=== PATIENT | female | born 1945 | race Caucasian/White ===

== ENCOUNTER 2016-09-25 23:15 | Emergency (ER) | payer MEDICARE, OTHER ==
[~2016-09-25 23:15] MED LIST: ASABAYER PO; ATEN25 PO; CENTRUM TAB1 TAB PO; CLARIT10 PO; COZAAR100 MG PO; CYANO1000T PO; FISH-EPA1000 MG PO; IRON325 MG PO; LANTUS SC; LIPITOR40 PO; LOFIB160 PO; METHOC500B PO; MIRALAXPKT PO; NEUR300 PO; NORV5 PO; NOVOLOG SC; OS500+D PO; PERCOCET1 TA2 PO; PRILO PO; VITC500 PO; ZINC PO
[2016-09-26 00:31] LABS: BASOPHILS 0.8 %; BASOPHILS ABSOLUTE 0.07 10/3/uL (0.0-0.16); EOSINOPHILS 2.5 %; EOSINOPHILS ABSOLUTE 0.23 10/3/uL (0.0-0.53); HEMATOCRIT 38.8 % (36.0-48.0); HEMOGLOBIN 12.9 g/dL (12.0-16.0); IMMATURE GRANULOCYTES 0.9 %; IMMATURE GRANULOCYTES ABSOLUTE 0.08 10/3/uL (0.0-0.11); LYMPHOCYTES 24.4 %; LYMPHOCYTES ABSOLUTE 2.27 10/3/uL (0.67-4.30); MEAN CORPUSCULAR HEMOGLOB 30.6 pg (26.0-34.0); MEAN CORPUSCULAR VOLUME 91.9 fL (80-100); MEAN PLATELET VOLUME 10.6 fL (9.2-13.0); MONOCYTES 13.2 %; MONOCYTES ABSOLUTE 1.23 10/3/uL (0.21-1.20); NEUTROPHILS 58.2 %; NEUTROPHILS ABSOLUTE 5.41 10/3/uL (2.02-8.40); PLATELET COUNT 293 10/3/uL (150-400); RBC DISTRIBUTION WIDTH 13.1 % (12.0-16.0); RED CELL COUNT 4.22 10/6/uL (4.0-5.6); WHITE BLOOD CELLS 9.3 10/3/uL (4.5-10.5)
[2016-09-26 00:32] LABS: MANUAL DIFF NO %; MEAN CORPUS HGB CONC 33.2 g/dL (32.0-36.0)
[2016-09-26 00:40] LABS: INTERNATIONAL NORMAL RATI 1.2 UNITS (-); PARTIAL THROMBO TIME 38.6 SEC (22.5-37.2)
[2016-09-26 00:49] LABS: CALCIUM, SERUM 8.8 MG/DL (8.5-10.4); CHEST PAIN PROFILE TAT 0 Hrs 22 Mins; CHLORIDE, SERUM 105 MMOL/L (96-112); CO2 (CARBON DIOXIDE) 29 MMOL/L (24-34); POTASSIUM, SERUM 4.5 MMOL/L (3.5-5.3); SODIUM, SERUM 139 MMOL/L (135-148); TROPONIN I <0.02 NG/ML (<0.05)
[2016-09-26 00:50] LABS: BUN (BLOOD UREA NITROGEN) 33 MG/DL (6-23); GFR AFRICAN AMERICAN 35 ML/MIN (>=60); GFR NON AFRICAN AMERICAN 30 ML/MIN (>=60); GLUCOSE, SERUM 150 MG/DL (60-99)
[2016-09-26 01:16] LABS: ASCORBIC ACID (UR NOT ORDER) 20 (NEG); BILIRUBIN, URINE NEGATIVE (NEG); ER URINALYSIS TAT 0 Hrs 00 Mins; KETONE, URINE NEGATIVE (NEG); LEUKOCYTE ESTERASE(NOT OR SMALL (NEG); NITRITE (URINE) POS (NEG); WBC (NOT ORDERED) (RFLEX) 16 (0-5)
== END 2016-09-26 02:45 | disposition home or self-care (01) ==
LOC: ER 23:15
PROVIDERS: Nurse Practitioner
DX: N39.0 Urinary tract infection, site not specified (principal); M25.511 Pain in right shoulder; I12.9 Hypertensive chronic kidney disease with stage 1 through stage 4 chronic kidney disease, or unspecified chronic kidney disease; N18.9 Chronic kidney disease, unspecified; E11.22 Type 2 diabetes mellitus with diabetic chronic kidney disease; E11.65 Type 2 diabetes mellitus with hyperglycemia; Z95.1 Presence of aortocoronary bypass graft; Z88.5 Allergy status to narcotic agent; Z79.82 Long term (current) use of aspirin; Z79.4 Long term (current) use of insulin; Z79.899 Other long term (current) drug therapy
CPT/HCPCS: 71010; 80048; 81001; 83690; 83735; 84484; 85025; 85610; 85730; 87077; 87086; 87186; 93005; 96372; 99284